=== PATIENT | female | born 1975 | race Caucasian/White ===

== ENCOUNTER 2017-05-22 06:31 | Day surgery (SDC) | payer OTHER ==
[2017-05-22] MEDS ORDERED: Lactated Ringers 1,000 ML IV SCH (07:00)
[2017-05-22] MEDS ORDERED: Lidocaine 1%/Sod Bicarbonate in NS 8.4% 1 ML Syringe IDERM PRN (07:00)
[2017-05-22] MEDS ORDERED: Sodium Chloride 0.9% 10 ML Syringe FLUSH PRN (07:00)
--- NOTE | 2017-05-22 07:24 | PCM.PREANE ---
Preanesthetic Assessment - Procedure Proposed Procedure: EGD - Anesthesia/Transfusion/Family Hx Anesthesia History: Prior Anesthesia Without Reaction (some hypotension after surgery) Family History of Anesthesia Reaction: No Transfusion History: No Prior Transfusion(s) Intubation History: Unknown - Review of Systems General: No Symptoms Pulmonary: No Symptoms, Other (asthma ) Cardiovascular: No Symptoms Gastrointestinal: Other (GERD, PUD ) Neurological: Tingling (lower extremities ) Other: Reports: None (vocal cord horseness baseline ) - Physical Assessment NPO Status Date: 05/21/17 NPO Status Time: 21:00 O2 Sat by Pulse Oximetry: 95 Respiratory Rate: 18 Vital Signs: Last Vital Signs Temp 36.7 C 05/22/17 06:35 Pulse 78 05/22/17 06:35 Resp 18 05/22/17 06:35 BP 125/71 05/22/17 06:35 Pulse Ox 95 05/22/17 06:35 Height: 1.75 m Weight: 162.84 kg ASA Class: 3 Mental Status: Alert & Oriented x3 Airway Class: Mallampati = 1 Dentition: Reports: Normal Dentition ROM/Head Extension: Full Lungs: Clear to Auscultation, Normal Respiratory Effort Cardiovascular: Regular Rate, Regular Rhythm - Allergies Allergies/Adverse Reactions: Allergies Allergy/AdvReac Type Severity Reaction Status Date / Time acetaminophen [From Vicodin] Allergy Cannot Verified 05/22/17 07:18 Remember amoxicillin Allergy Cannot Verified 05/22/17 07:18 Remember codeine Allergy Cannot Verified 05/22/17 07:18 Remember guaifenesin Allergy Cannot Verified 05/22/17 07:18 Remember hydrocodone [From Vicodin] Allergy Cannot Verified 05/22/17 07:18 Remember Penicillins Allergy Cannot Verified 05/22/17 07:18 Remember - Blood Blood Available: No PreAnesthesia Questionnaire HEENT History: Reports: Impaired Vision, Other (See Below) Other HEENT History: hoarseness Cardiovascular History: Reports: None Respiratory History: Reports: Asthma Gastrointestinal History: Reports: GERD, PUD, Other (See Below) Other Gastrointestinal History: splenic cyst, ulcer Genitourinary History: Reports: None 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) Other OB/BYN History: cystic breast disease, ovarian surgery x2 Musculoskeletal History: Reports: Osteoarthritis Neurological History: Reports: Other (See Below) Other Neuro History: epilepsy, neuropathy Psychiatric History: Reports: Depression Endocrine/Metabolic History: Reports: Obesity/BMI 30+ Hematologic History: Reports: None Immunologic History: Reports: None Oncologic (Cancer) History: Reports: None Dermatologic History: Reports: None - Past Surgical History Head Surgeries/Procedures: Reports: None HEENT Surgical History: Reports: None, Tonsillectomy Cardiovascular Surgical History: Reports: None Respiratory Surgical History: Reports: None GI Surgical History: Reports: Appendectomy, EGD Female Surgical History: Reports: Section Endocrine Surgical History: Reports: None Neurological Surgical History: Reports: None Musculoskeletal Surgical History: Reports: None Oncologic Surgical History: Reports: None Dermatological Surgical History: Reports: None - SUBSTANCE USE Smoking Status *Q: Former Smoker Recreational Drug Use History: No - HOME MEDS Home Medications: Home Meds Butalb/Acetaminophen/Caffeine [Okgcrz-Mdbvbfdw-Rzov 50-325-40] 1 tab PO Q4H PRN 05/21/17 [History] Omeprazole [Omeprazole] 20 mg PO DAILY 05/21/17 [History] Propranolol [Inderal LA] 80 mg PO DAILY 05/21/17 [History] rOPINIRole [Requip] 0.25 mg PO BEDTIME 05/21/17 [History] - CURRENT (IN HOUSE) MEDS Current Meds: Current Medications Lactated Ringer's (Ringers, Lactated) 1,000 mls @ 125 mls/hr IV ASDIRECTED DALJIT Stop: 05/22/17 23:00 Last Admin: 05/22/17 06:50 Dose: 125 mls/hr Lidocaine/Sodium Bicarbonate (Buffered Lidocaine 1% In Ns 8.4%) 0.25 ml IDERM ONETIME PRN PRN Reason: Prior to IV Start Stop: 05/22/17 18:00 Last Admin: 05/22/17 06:49 Dose: 0.25 ml Sodium Chloride (Saline Flush) 10 ml FLUSH ASDIRECTED PRN PRN Reason: Keep Vein Open Stop: 05/22/17 18:00
[2017-05-22] MEDS ORDERED: Propofol 200 MG/20 ML SDV ONE (07:30)
[2017-05-22] MEDS ORDERED: Lidocaine 1% 4 ML ONE (07:32)
--- NOTE | 2017-05-22 07:49 | PCM.HP ---
H&P History of Present Illness - General Date of Service: 05/22/17 Admit Problem/Dx: GERD, Peptic Ulcer Disease Source of Information: Patient History Limitations: Reports: No Limitations - History of Present Illness Initial Comments - Free Text/Narative: 41 year old female here today for EGD due to gastric reflux and history of peptic ulcer disease. She has ongoing symptoms of heartburn despite 20 mg omeprazole daily. She has had some weight loss. She denies any melena, no hematochezia. She has had no dysphagia. She has some vocal hoarseness. - Related Data Allergies/Adverse Reactions: Allergies Allergy/AdvReac Type Severity Reaction Status Date / Time acetaminophen [From Vicodin] Allergy Cannot Verified 05/22/17 07:18 Remember amoxicillin Allergy Cannot Verified 05/22/17 07:18 Remember codeine Allergy Cannot Verified 05/22/17 07:18 Remember guaifenesin Allergy Cannot Verified 05/22/17 07:18 Remember hydrocodone [From Vicodin] Allergy Cannot Verified 05/22/17 07:18 Remember Penicillins Allergy Cannot Verified 05/22/17 07:18 Remember Home Medications: Home Meds Butalb/Acetaminophen/Caffeine [Mobsli-Ppakoxur-Zaen 50-325-40] 1 tab PO Q4H PRN 05/21/17 [History] Omeprazole [Omeprazole] 20 mg PO DAILY 05/21/17 [History] Propranolol [Inderal LA] 80 mg PO DAILY 05/21/17 [History] rOPINIRole [Requip] 0.25 mg PO BEDTIME 05/21/17 [History] Past Medical History HEENT History: Reports: Impaired Vision, Other (See Below) Other HEENT History: hoarseness Cardiovascular History: Reports: None Respiratory History: Reports: Asthma Gastrointestinal History: Reports: GERD, PUD, Other (See Below) Other Gastrointestinal History: splenic cyst, ulcer Genitourinary History: Reports: None 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) Other OB/BYN History: cystic breast disease, ovarian surgery x2 Musculoskeletal History: Reports: Osteoarthritis Neurological History: Reports: Other (See Below) Other Neuro History: epilepsy, neuropathy Psychiatric History: Reports: Depression Endocrine/Metabolic History: Reports: Obesity/BMI 30+ Hematologic History: Reports: None Immunologic History: Reports: None Oncologic (Cancer) History: Reports: None Dermatologic History: Reports: None - Past Surgical History Head Surgeries/Procedures: Reports: None HEENT Surgical History: Reports: None, Tonsillectomy Cardiovascular Surgical History: Reports: None Respiratory Surgical History: Reports: None GI Surgical History: Reports: Appendectomy, EGD Female Surgical History: Reports: Section Endocrine Surgical History: Reports: None Neurological Surgical History: Reports: None Musculoskeletal Surgical History: Reports: None Oncologic Surgical History: Reports: None Dermatological Surgical History: Reports: None Social & Family History - Tobacco Use Smoking Status *Q: Former Smoker Used Tobacco, but Quit: Yes Month Tobacco Last Used: 1999 - Caffeine Use Caffeine Use: Reports: Coffee, Soda - Recreational Drug Use Recreational Drug Use: No Drug Use in Last 12 Months: No H&P Review of Systems - Review of Systems: Review Of Systems: See Below General: Reports: No Symptoms Pulmonary: Reports: No Symptoms Cardiovascular: Reports: No Symptoms Gastrointestinal: Denies: Black Stool, Bloody Stool, Difficulty Swallowing, Hematochezia, Melena Exam - Exam Exam: See Below - Vital Signs Vital Signs: Last Vital Signs Temp 36.7 C 05/22/17 06:35 Pulse 78 05/22/17 06:35 Resp 18 05/22/17 07:23 BP 125/71 05/22/17 06:35 Pulse Ox 95 05/22/17 07:23 Weight: 162.84 kg - Exam General: Alert, Oriented Lungs: Clear to Auscultation, Normal Respiratory Effort Cardiovascular: Regular Rate, Regular Rhythm GI/Abdominal Exam: Normal Bowel Sounds, Soft *Q Meaningful Use (ADM) - VTE *Q VTE Criteria *Q: - Stroke *Q Stroke Criteria *Q: - AMI *Q AMI Criteria *Q: - Problem List (1) GERD (gastroesophageal reflux disease) SNOMED Code(s): 286519466 ICD Code: K21.9 - GASTRO-ESOPHAGEAL REFLUX DISEASE WITHOUT ESOPHAGITIS Status: Acute Current Visit: Yes (2) Hoarseness of voice Status: Acute Current Visit: Yes (3) PUD (peptic ulcer disease) SNOMED Code(s): 72557720 ICD Code: K27.9 - PEPTIC ULC, SITE UNSP, UNSP AC OR CHR, W/O HEMOR OR PERF Status: Acute Current Visit: Yes Problem List Initiated/Reviewed/Updated: Yes Orders Last 24hrs: Active Orders 24 hr Category Date Time Status Peripheral IV Care [RC] . DIRECTED Care 05/22/17 07:00 Active Verify Patient Consent Obtain [RC] ASDIRECTED Care 05/22/17 07:00 Active Lactated Ringers [Ringers, Lactated] 1,000 ml Med 05/22/17 07:00 Active IV ASDIRECTED Lidocaine 1%/Sod Bicarbonate [Buffered Lidocaine 1% in Med 05/22/17 07:00 Active NS 8.4%] 0.25 ml IDERM ONETIME PRN Sodium Chloride 0.9% [Saline Flush] Med 05/22/17 07:00 Active 10 ml FLUSH ASDIRECTED PRN Medication Administration Instruction [OM.PC] Routine Oth 05/22/17 07:00 Ordered Peripheral IV Insertion Adult [OM.PC] Routine Oth 05/22/17 07:00 Ordered Medication Orders Lactated Ringer's (Ringers, Lactated) 1,000 mls @ 125 mls/hr IV ASDIRECTED DALJIT Stop: 05/22/17 23:00 Last Admin: 05/22/17 06:50 Dose: 125 mls/hr Lidocaine/Sodium Bicarbonate (Buffered Lidocaine 1% In Ns 8.4%) 0.25 ml IDERM ONETIME PRN PRN Reason: Prior to IV Start Stop: 05/22/17 18:00 Last Admin: 05/22/17 06:49 Dose: 0.25 ml Sodium Chloride (Saline Flush) 10 ml FLUSH ASDIRECTED PRN PRN Reason: Keep Vein Open Stop: 05/22/17 18:00 Assessment/Plan Comment:: Proceed with EGD for above symptoms and concerns despite PPI therapy. Risks/ benefits discussed.
[2017-05-22] MEDS ORDERED: Acetaminophen/Butalbital/Caffeine 325-50-40 MG Tab PO PRN (08:26)
--- NOTE | 2017-05-22 08:26 | PCM48HPAN ---
Post Anesthesia Note - EVALUATION WITHIN 48HRS OF ANESTHETIC Vital Signs in Normal Range: Yes Patient Participated in Evaluation: Yes Respiratory Function Stable: Yes Airway Patent: Yes Cardiovascular Function Stable: Yes Hydration Status Stable: Yes Pain Control Satisfactory: Yes Nausea and Vomiting Control Satisfactory: Yes Mental Status Recovered: Yes Pulse Rate: 76 SaO2: 97 Resp Rate: 18 Temperature: 36.7 C Blood Pressure: 112/71 Pulse Rate: 76
--- NOTE | 2017-05-22 08:26 | PCM.OPNOTE ---
- General Post-Op/Procedure Note Date of Surgery/Procedure: 05/22/17 Operative Procedure(s): Esophagogastroduodenoscopy with biopsy Pre Op Diagnosis: GERD, Peptic Ulcer Disease Post-Op Diagnosis: Esophagitis, Gastric Ulcers Anesthesia Technique: [facility] Primary Surgeon: Dav Hillman Pathology: Biopsies GE junction, Gastric Ulcers EBL in mLs: 5 Complications: None Condition: Good Free Text/Narrative:: After patient gave verbal and written consent, she was placed on bp and pulse ox monitoring. SHe was given IV sedation which she tolerated well. The olympus gastroscope was inserted in the oropharynx and passed down into the second portion of duodenum. THe scope was slowly removed. THe views were excellent. Gastric ulcers of the fundus and antrum were noted and biopsied with cold forceps. There was hemostasis. No active bleeding noted. THere was inflammation and erythema at GE junction. Biopsies were taken at GE junction. THe scope was then removed. Patient left in satisfactory condition.
[2017-05-22] MEDS ORDERED: Propranolol 80 MG Cap.ER PO SCH (09:00)
[2017-05-22] MEDS ORDERED: rOPINIRole 0.25 MG Tab PO SCH (21:00)
== END 2017-05-22 08:51 | disposition home or self-care (01) ==
LOC: JD.SDS 06:31
PROVIDERS: ATTEND Family Medicine
DX: K29.50 Unspecified chronic gastritis without bleeding (principal); K21.0 Gastro-esophageal reflux disease with esophagitis; J45.909 Unspecified asthma, uncomplicated; K27.9 Peptic ulcer, site unspecified, unspecified as acute or chronic, without hemorrhage or perforation; Z88.0 Allergy status to penicillin; Z88.1 Allergy status to other antibiotic agents; Z88.8 Allergy status to other drugs, medicaments and biological substances; E66.9 Obesity, unspecified; Z68.30 Body mass index [BMI] 30.0-30.9, adult; Z87.891 Personal history of nicotine dependence
CPT/HCPCS: 43239; J7120; 00731; J2704

== ENCOUNTER 2019-09-05 09:03 | Emergency (ER) | payer OTHER ==
--- NOTE | 2019-09-05 10:58 | EDM.PDOC ---
ED HPI GENERAL MEDICAL PROBLEM - General Chief Complaint: Lower Extremity Injury/Pain Stated Complaint: PAIN IN BOTH LEGS Time Seen by Provider: 09/05/19 10:20 Source of Information: Reports: Patient, RN Notes Reviewed History Limitations: Reports: No Limitations - History of Present Illness INITIAL COMMENTS - FREE TEXT/NARRATIVE: Patient is a 44-year-old female who presents to the ED for the evaluation of her bilateral leg pain. Patient states that most recently she was on an extended road trip for 2 weeks, and she developed a sharp pain, with swelling in her left leg. She states however when she takes car rides, the swelling in her legs is a very common occurrence for her. She states the pain was what was different. She states that her leg was red and painful to the touch, she did try to ice and stay off it, and took Advil and Tylenol and a sexs-fib-bjirjap basis, nothing seems to really help much during that time. She states the pain is improved, but she still feels like there is a constant "charley horse" In the back of her left calf. Patient states she did start taking diurex for the swelling regularly. Patient also notes is get a history of varicose veins, so was unsure if there could be something regarding the use. Patient denies any shortness of breath, fever/chills, cough or any other sick-like symptoms. Patient's primary care provider is Dr. Oliva. Patient also complains of some mild swelling on her lateral right knee, states that it is worsened when she bends her knee, this is not overly painful, but bothersome to her. Left Leg Pain Score (Numeric/FACES): 5 - Related Data Allergies Allergy/AdvReac Type Severity Reaction Status Date / Time amoxicillin Allergy Cannot Verified 09/05/19 09:32 Remember codeine Allergy Cannot Verified 09/05/19 09:32 Remember guaifenesin Allergy Cannot Verified 09/05/19 09:32 Remember hydrocodone [From Vicodin] Allergy Cannot Verified 09/05/19 09:32 Remember Penicillins Allergy Cannot Verified 09/05/19 09:32 Remember Home Meds: Home Meds Butalb/Acetaminophen/Caffeine [Wybkss-Jcfysnwe-Gsed 50-325-40] 1 tab PO Q4H PRN 05/21/17 [History] Omeprazole 20 mg PO DAILY 05/21/17 [History] Propranolol [Inderal LA] 80 mg PO DAILY 05/21/17 [History] rOPINIRole [Requip] 0.25 mg PO BEDTIME 05/21/17 [History] Sucralfate [Carafate] 1 gm PO BID #60 tablet 05/22/17 [Rx] Past Medical History HEENT History: Reports: Impaired Vision, Other (See Below) Other HEENT History: hoarseness Respiratory History: Reports: Asthma Gastrointestinal History: Reports: GERD, PUD, Other (See Below) Other Gastrointestinal History: splenic cyst, ulcer 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: cystic breast disease, ovarian surgery x2 Musculoskeletal History: Reports: Osteoarthritis Neurological History: Reports: Other (See Below) Other Neuro History: epilepsy, neuropathy Psychiatric History: Reports: Depression Endocrine/Metabolic History: Reports: Obesity/BMI 30+ - Past Surgical History HEENT Surgical History: Reports: Tonsillectomy GI Surgical History: Reports: Appendectomy, EGD Female Surgical History: Reports: Section Social & Family History - Tobacco Use Smoking Status *Q: Never Smoker Second Hand Smoke Exposure: No - Caffeine Use Caffeine Use: Reports: None - Recreational Drug Use Recreational Drug Use: No Review of Systems - Review of Systems Review Of Systems: Comprehensive ROS is negative, except as noted in HPI. ED EXAM, GENERAL - Physical Exam Exam: See Below Exam Limited By: No Limitations General Appearance: Alert, WD/WN, No Apparent Distress Eye Exam: Bilateral Eye: EOMI, Normal Inspection, Periorbital Changes Head: Atraumatic, Normocephalic Neck: Normal Inspection Respiratory/Chest: No Respiratory Distress, Lungs Clear, Normal Breath Sounds, No Accessory Muscle Use, Chest Non-Tender Cardiovascular: Normal Peripheral Pulses, Regular Rate, Rhythm, No Murmur GI/Abdominal: Normal Bowel Sounds, Soft, Non-Tender, No Distention, No Mass Back Exam: Normal Inspection Extremities: Normal Inspection, Normal Capillary Refill, Leg Pain (bilateral leg cramps). No: Increased Warmth, Redness Neurological: Alert, Oriented, Normal Cognition, No Motor/Sensory Deficits Psychiatric: Normal Affect, Normal Mood Skin Exam: Warm, Dry, Intact, Normal Color, No Rash Course - Vital Signs Last Recorded V/S: Last Vital Signs Temp 97.1 F 06/22/20 09:25 Pulse 86 09/05/19 09:25 Resp 18 09/05/19 09:25 BP 152/76 H 09/05/19 09:25 Pulse Ox 99 09/05/19 09:25 - Orders/Labs/Meds Labs: Laboratory Tests 09/05/19 09/05/19 Range/Units 12:40 12:40 Sodium 141 (136-145) mEq/L Potassium 4.3 (3.5-5.1) mEq/L Chloride 106 (98-107) mEq/L Carbon Dioxide 27 (21-32) mEq/L Anion Gap 12.3 (5-15) BUN 13 (7-18) mg/dL Creatinine 0.7 (0.55-1.02) mg/dL Est Cr Clr Drug Dosing 98.69 mL/min Estimated GFR (MDRD) > 60 (>60) mL/min BUN/Creatinine Ratio 18.6 H (14-18) Glucose 95 (74-106) mg/dL Calcium 9.0 (8.5-10.1) mg/dL Magnesium 2.0 (1.8-2.4) mg/dl Total Bilirubin 0.4 (0.2-1.0) mg/dL AST 17 (15-37) U/L ALT 29 (14-59) U/L Alkaline Phosphatase 65 (46-116) U/L Total Protein 7.1 (6.4-8.2) g/dl Albumin 3.8 (3.4-5.0) g/dl Globulin 3.3 gm/dL Albumin/Globulin Ratio 1.2 (1-2) - Re-Assessments/Exams Free Text/Narrative Re-Assessment/Exam: 09/05/19 12:28 Patient presents to the ED for evaluation of her bilateral leg pain. Ultrasound shortly after the patient presented to the ER to rule out blood clot. Due to the busyness in the ER, I did not get to the patient until ultrasound is being finished, ultrasound report itself demonstrates no sign of a DVT within the right or left lower extremities. Due to the patient stating that she took diuretics, it is likely that she could be having muscle cramps from dehydration due to the diuretics. We will get CMP and magnesium levels to check for electrolyte abnormalities, but we will try to expedite the patient's treatment plan once we get the labs back. 06/22/20 13:53 Labs are back and are unremarkable. I will discharge home with general recommendations at this time. Instead of Diurex, I will suggest that she use some sort of compression sock or MICHAEL wraps on long travel. Departure - Departure Time of Disposition: 14:08 Disposition: Home, Self-Care 01 Condition: Good Clinical Impression: Pain of left lower extremity, Swelling of lower limb - Discharge Information *PRESCRIPTION DRUG MONITORING PROGRAM REVIEWED*: No *COPY OF PRESCRIPTION DRUG MONITORING REPORT IN PATIENT VIRGIL: No Referrals: Dav Hillman MD [Primary Care Provider] - Forms: ED Department Discharge Additional Instructions: You were evaluated in the ER today regarding your left lower leg pain. You did have an ultrasound done of both legs to rule out blood clots, and there were no blood clots identified at today's visit. You also had some laboratory evaluation to check for metabolic abnormalities and these were also within normal limits. It is likely that while taking diurex, you are experiencing some muscle discomfort/cramping, as the diuretics can still potassium out of the muscles, causing some cramps and pain. Recommend on long car trips instead of trying diuretics, that you try to use Michael wraps to both legs, and or use MONIAK hose/compression socks to provide compression to provide relief from swelling, is also further recommended that you get out of your car more frequently for more frequent rest stops, and walk around a good 10 to 15 minutes before getting back into the car to travel again. While you were in the car, you may do calf pumps as well to help relieve some of the swelling, and try to elevate your legs as much as possible while not in the car. At this time there is no other urgent or emergent consideration regarding the pain in your legs. I would recommend increasing your oral hydration with fluids other than soda pop at this time. You may want to try regular water, Gatorade/Powerade to see if this also does not help some of your symptoms. You may take 600 mg of ibuprofen every 6 hours as needed for further pain relief, do not exceed 3200 mg ibuprofen in a 24-hour time span. Please return to the ER at any time if your symptoms should change or worsen. Sepsis Event Note (ED) - Evaluation Sepsis Screening Result: No Definite Risk - Focused Exam Vital Signs: Vital Signs Temp Pulse Resp BP Pulse Ox 09/05/19 09:25 97.1 F 86 18 152/76 H 99
--- NOTE | 2019-09-05 11:48 | US ---
Bilateral lower extremity deep venous ultrasound: Duplex and color Doppler evaluation was obtained of the right and left common femoral, proximal greater saphenous, superficial femoral, popliteal, posterior tibial and peroneal veins. Comparison: No prior venous imaging is available. Findings: Normal phasic flow, augmentation and compression is seen. Impression: 1. No evidence of deep venous thrombosis within the right or left lower extremities. Diagnostic code #1 This report was dictated in MDT
== END 2019-09-05 14:31 | disposition home or self-care (01) ==
LOC: JD.ED 09:03
DX: M79.605 Pain in left leg (principal); R22.42 Localized swelling, mass and lump, left lower limb; J45.909 Unspecified asthma, uncomplicated; G62.9 Polyneuropathy, unspecified; K21.9 Gastro-esophageal reflux disease without esophagitis; E66.9 Obesity, unspecified; Z68.43 Body mass index [BMI] 50.0-59.9, adult; Z88.0 Allergy status to penicillin; Z88.5 Allergy status to narcotic agent; Z88.1 Allergy status to other antibiotic agents
CPT/HCPCS: 36415; 80053; 83735; 93970; 93970-26; 99282; 99284-25

== ENCOUNTER 2020-07-18 18:52 | Emergency (ER) | payer OTHER ==
[2020-07-18] MEDS ORDERED: diphenhydrAMINE 50 MG/ML SDV IVPUSH ONE (19:08)
[2020-07-18] MEDS ORDERED: Sodium Chloride 0.9% 10 ML Syringe FLUSH PRN (19:08)
[2020-07-18] MEDS ORDERED: methylPREDNISolone Sodium Succinate 125 MG/2 ML SDV IVPUSH ONE (19:08)
[2020-07-18] MEDS ORDERED: Sodium Chloride 0.9% 1,000 ML IV ONE (19:08)
[2020-07-18] MEDS ORDERED: Famotidine 20 MG/2 ML SDV IVPUSH ONE (19:08)
--- NOTE | 2020-07-18 19:13 | EDM.PDOC ---
ED HPI GENERAL MEDICAL PROBLEM - General Chief Complaint: Allergic Reaction Stated Complaint: poss allergic reaction Time Seen by Provider: 07/18/20 19:01 Source of Information: Reports: Patient, RN Notes Reviewed History Limitations: Reports: No Limitations - History of Present Illness INITIAL COMMENTS - FREE TEXT/NARRATIVE: Patient is a 45-year-old female who presents to the ER for possible allergic reaction. The patient notes that she was eating cantaloupe just prior to coming to the ER, notes that she has had cantaloupe in the past, but she did eat "a ton" of it and is not sure if she overdid this. Notes that she had an allergy to watermelon when she was a child but has not had an issue since then. She developed mouth tingling, hand tingling, facial puffiness, and airway tightness, which prompted her to come to the ER. She did not take any medications prior to coming to the ER for the possible allergic reaction. Note she has a history of asthma that seems to be well controlled otherwise denies any past medical history. Primary care provider is Cristiane Ballesteros. Patient's not had any fevers or chills, cough or shortness of breath, she has a little bit of nausea but no vomiting or diarrhea. - Related Data Allergies Allergy/AdvReac Type Severity Reaction Status Date / Time amoxicillin Allergy Cannot Verified 09/05/19 09:32 Remember cantaloupe Allergy Itching Verified 07/18/20 19:45 codeine Allergy Cannot Verified 09/05/19 09:32 Remember doxycycline Allergy Cannot Verified 07/18/20 19:45 Remember guaifenesin Allergy Cannot Verified 09/05/19 09:32 Remember hydrocodone [From Vicodin] Allergy Cannot Verified 09/05/19 09:32 Remember Penicillins Allergy Cannot Verified 09/05/19 09:32 Remember Home Meds: Home Meds Omeprazole 20 mg PO DAILY 05/21/17 [History] Ascorbic Acid [Vitamin C] 1,000 mg PO DAILY 07/18/20 [History] Ascorbic Acid [Vitamin C] 1,000 mg PO DAILY 07/18/20 [History] Aspirin [Aspirin EC] 81 mg PO DAILY 07/18/20 [History] Cholecalciferol (Vitamin D3) [Vitamin D3] 5,000 unit PO DAILY 07/18/20 [History] Cyanocobalamin (Vitamin B12) [Vitamin B12] 1,000 mcg PO DAILY 07/18/20 [History] Garlic 2,000 mg PO DAILY 07/18/20 [History] Ginkgo Biloba 60 mg PO DAILY 07/18/20 [History] Ginseng 100 mg PO DAILY 07/18/20 [History] Krill Oil 500 mg PO DAILY 07/18/20 [History] Magnesium 250 mg PO DAILY 07/18/20 [History] Potassium Gluconate [Potassium] 99 mg PO DAILY 07/18/20 [History] Prasterone (DHEA) [Dhea] 100 mg PO DAILY 07/18/20 [History] Quercetin Dihydrate 500 gm MC BID 07/18/20 [History] Rizatriptan Benzoate [Rizatriptan] 10 mg PO ASDIRECTED PRN 07/18/20 [History] Vitamin D3/Vitamin K2 (Mk4) [K2 Plus D3 Tablet] 1 each PO DAILY 07/18/20 [History] Vitamin E 1,000 unit PO DAILY 07/18/20 [History] Zinc 25 mg PO BID 07/18/20 [History] Past Medical History HEENT History: Reports: Impaired Vision, Other (See Below) Other HEENT History: hoarseness Respiratory History: Reports: Asthma Gastrointestinal History: Reports: GERD, PUD, Other (See Below) Other Gastrointestinal History: splenic cyst, ulcer CORRECTIONAL LIEUTENANT History: Reports: Other (See Below) Other CORRECTIONAL LIEUTENANT History: cystic breast disease, ovarian surgery x2 Musculoskeletal History: Reports: Osteoarthritis Neurological History: Reports: Other (See Below) Other Neuro History: epilepsy, neuropathy Psychiatric History: Reports: Depression Endocrine/Metabolic History: Reports: Obesity/BMI 30+ - Past Surgical History HEENT Surgical History: Reports: Tonsillectomy GI Surgical History: Reports: Appendectomy, EGD Female Surgical History: Reports: Section Social & Family History - Tobacco Use Tobacco Use Status *Q: Former Tobacco User Used Tobacco, but Quit: Yes Month/Year Tobacco Last Used: 03/1999 - Caffeine Use Caffeine Use: Reports: Coffee - Recreational Drug Use Recreational Drug Use: Yes Drug Use in Last 12 Months: No Recreational 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 ED EXAM GENERAL NO PERIP PULSE - Physical Exam Exam: See Below Exam Limited By: No Limitations General Appearance: Alert, WD/WN, No Apparent Distress Eye Exam: Left Eye: Periorbital Changes (slight upper eyelid swelling to L eye), Bilateral Eye: EOMI, Normal Inspection, PERRL Ears: Normal External Exam Nose: Normal Inspection Throat/Mouth: Normal Inspection, Normal Lips, Normal Teeth, Normal Gums, Normal Oropharynx, Normal Voice, No Airway Compromise Head: Atraumatic, Normocephalic Neck: Normal Inspection, Supple, Non-Tender, Full Range of Motion Respiratory/Chest: No Respiratory Distress, Lungs Clear, Normal Breath Sounds, No Accessory Muscle Use, Chest Non-Tender Cardiovascular: Normal Peripheral Pulses, Regular Rate, Rhythm, No Edema GI/Abdominal: Normal Bowel Sounds, Soft, Non-Tender, No Distention, No Mass Extremities: Normal Inspection, Normal Capillary Refill Neurological: Alert, Oriented, Normal Cognition, No Motor/Sensory Deficits Psychiatric: Normal Affect, Normal Mood Skin Exam: Warm, Dry, Intact, Normal Color, No Rash Course - Vital Signs Last Recorded V/S: Last Vital Signs Temp 97.6 F 07/18/20 19:01 Pulse 97 07/18/20 19:01 Resp 14 07/18/20 19:01 BP 127/80 07/18/20 19:01 Pulse Ox 97 07/18/20 19:01 - Orders/Labs/Meds Orders: Active Orders 24 hr Category Date Time Status Peripheral IV Care [RC] . DIRECTED Care 07/18/20 19:08 Ordered Sodium Chloride 0.9% [Normal Saline] 1,000 ml Med 07/18/20 19:08 Active IV ONETIME Sodium Chloride 0.9% [Saline Flush] Med 07/18/20 19:08 Active 10 ml FLUSH ASDIRECTED PRN Peripheral IV Insertion Adult [OM.PC] Stat Oth 07/18/20 19:08 Ordered Medication Orders Sodium Chloride (Normal Saline) 1,000 mls @ 500 mls/hr IV ONETIME ONE Stop: 07/18/20 21:07 Last Admin: 07/18/20 19:18 Dose: 500 mls/hr Documented by: KHAI Sodium Chloride (Sodium Chloride 0.9% 10 Ml Syringe) 10 ml FLUSH ASDIRECTED PRN PRN Reason: Keep Vein Open Last Admin: 07/18/20 19:12 Dose: 10 ml Documented by: KHAI Meds: Medications Generic Name Dose Route Start Last Admin Trade Name Freq PRN Reason Stop Dose Admin Sodium Chloride 1,000 mls @ 500 mls/hr 07/18/20 19:08 07/18/20 19:18 Normal Saline IV 07/18/20 21:07 500 mls/hr ONETIME ONE Administration Sodium Chloride 10 ml 07/18/20 19:08 07/18/20 19:12 Sodium Chloride 0.9% 10 Ml Syringe FLUSH 10 ml ASDIRECTED PRN Administration Keep Vein Open Discontinued Medications Generic Name Dose Route Start Last Admin Trade Name Freq PRN Reason Stop Dose Admin Diphenhydramine HCl 50 mg 07/18/20 19:08 07/18/20 19:20 Diphenhydramine 50 Mg/Ml Sdv IVPUSH 07/18/20 19:09 50 mg ONETIME ONE Administration Famotidine 20 mg 07/18/20 19:08 07/18/20 19:18 Famotidine 20 Mg/2 Ml Sdv IVPUSH 07/18/20 19:09 20 mg ONETIME ONE Administration Methylprednisolone Sodium Succinate 125 mg 07/18/20 19:08 07/18/20 19:19 Methylprednisolone Sodium Succinate 125 Mg/2 Ml Sdv IVPUSH 07/18/20 19:09 125 mg ONETIME ONE Administration - Re-Assessments/Exams Free Text/Narrative Re-Assessment/Exam: 07/18/20 19:13 Patient presents to the ER for her possible allergic reaction, we will go ahead and give her some IV fluids, Benadryl, Pepcid, Solu-Medrol for suspected allergic reaction. Will reassess after the patient has had time to receive the medications ordered. 07/18/20 20:06 Patient states she is feeling better with the medications given, she is comfortable going home at this time we will go ahead and discharge the patient with general recommendations. Departure - Departure Time of Disposition: 20:07 Disposition: Home, Self-Care 01 Condition: Good Clinical Impression: Allergic reaction Qualifiers: Encounter type: initial encounter Qualified Code(s): T78.40XA - Allergy, unspecified, initial encounter - Discharge Information *PRESCRIPTION DRUG MONITORING PROGRAM REVIEWED*: No *COPY OF PRESCRIPTION DRUG MONITORING REPORT IN PATIENT VIRGIL: No Instructions: Allergies, Adult, [id number] Referrals: Cristiane Ballesteros PA-C [Primary Care Provider] - Forms: ED Department Discharge Additional Instructions: You were seen in this ER for a possible allergic reaction. You were given some IV fluids, and medications for management of this, this seemed to relieve most your symptoms. Please continue to use Benadryl, 25 mg every 4-6 hours as needed for ongoing symptoms, if this makes you too drowsy, you may use [id number] Pepcid (famotidine) as directed on the back of the box for dosing purposes for itching purposes throughout the day. It was thought that the cantaloupe could have caused a hypersensitivity/allergic reaction which caused your face to swell, and provide you with the symptoms of brought you to the ER today, please try to refrain from eating cantaloupe in the near future until you can be seen by possible business management intern for testing if indicated. Continue to increase your oral high fluid hydration, and please do not hesitate to return to the ER at any time if symptoms change or worsen. Sepsis Event Note (ED) - Evaluation Sepsis Screening Result: No Definite Risk - Focused Exam Vital Signs: Vital Signs Temp Pulse Resp BP Pulse Ox 07/18/20 19:01 97.6 F 97 14 127/80 97 - My Orders Last 24 Hours: My Active Orders 07/18/20 19:08 Peripheral IV Care [RC] . DIRECTED Sodium Chloride 0.9% [Normal Saline] 1,000 ml IV ONETIME Sodium Chloride 0.9% [Saline Flush] 10 ml FLUSH ASDIRECTED PRN Peripheral IV Insertion Adult [OM.PC] Stat - Assessment/Plan Last 24 Hours: My Active Orders 07/18/20 19:08 Peripheral IV Care [RC] . DIRECTED Sodium Chloride 0.9% [Normal Saline] 1,000 ml IV ONETIME Sodium Chloride 0.9% [Saline Flush] 10 ml FLUSH ASDIRECTED PRN Peripheral IV Insertion Adult [OM.PC] Stat
== END 2020-07-18 20:21 | disposition home or self-care (01) ==
LOC: JD.ED 18:52
DX: T78.1XXA Other adverse food reactions, not elsewhere classified, initial encounter (principal); R22.0 Localized swelling, mass and lump, head; K21.9 Gastro-esophageal reflux disease without esophagitis; E66.9 Obesity, unspecified; Z88.0 Allergy status to penicillin; Z88.1 Allergy status to other antibiotic agents; Z88.5 Allergy status to narcotic agent; Z88.8 Allergy status to other drugs, medicaments and biological substances; Z79.82 Long term (current) use of aspirin; Z79.899 Other long term (current) drug therapy; Z87.891 Personal history of nicotine dependence; Z68.43 Body mass index [BMI] 50.0-59.9, adult
CPT/HCPCS: 96374; 96375; 99283; J1200; J2930; J3490; J7030

== ENCOUNTER 2021-08-04 14:54 | Emergency (ER) | payer BC, OTHER ==
[2021-08-04] MEDS ORDERED: Ketorolac 15 MG/ML SDV IVPUSH ONE (15:23)
[2021-08-04] MEDS ORDERED: Sodium Chloride 0.9% 10 ML Syringe FLUSH ONE (16:07)
[2021-08-04] MEDS ORDERED: Iopamidol 755 Mg/ML 100 ML Bottle IVPUSH ONE (16:07)
[2021-08-04] MEDS ORDERED: Sodium Chloride 0.9% 100 ML IV SCH (16:15)
== END 2021-08-04 17:20 | disposition home or self-care (01) ==
LOC: JD.ED 14:54
DX: M54.2 Cervicalgia (principal); R20.2 Paresthesia of skin; K21.9 Gastro-esophageal reflux disease without esophagitis; E66.9 Obesity, unspecified; Z68.43 Body mass index [BMI] 50.0-59.9, adult; Z86.16 Personal history of COVID-19; Z90.49 Acquired absence of other specified parts of digestive tract; Z79.899 Other long term (current) drug therapy; Z79.82 Long term (current) use of aspirin; Z88.0 Allergy status to penicillin; Z88.5 Allergy status to narcotic agent; Z88.1 Allergy status to other antibiotic agents; Z91.018 Allergy to other foods; Z88.8 Allergy status to other drugs, medicaments and biological substances
CPT/HCPCS: 36415; 70496; 70498; 80053; 84484; 85025; 85610; 93005; 96374; 99284; J1885; J3490; Q9967; 93010

== ENCOUNTER 2022-12-19 10:09 | Emergency (ER) | payer BC ==
[2022-12-19] MEDS ORDERED: Lidocaine 1% 10 ML MDV INJECT ONE (10:30)
== END 2022-12-19 11:37 | disposition home or self-care (01) ==
LOC: JD.ED 10:09
DX: S61.217A Laceration without foreign body of left little finger without damage to nail, initial encounter (principal); E66.9 Obesity, unspecified; Z68.43 Body mass index [BMI] 50.0-59.9, adult; K21.9 Gastro-esophageal reflux disease without esophagitis; J45.909 Unspecified asthma, uncomplicated; Z88.0 Allergy status to penicillin; Z88.5 Allergy status to narcotic agent; Z88.8 Allergy status to other drugs, medicaments and biological substances; Z88.1 Allergy status to other antibiotic agents; Z79.82 Long term (current) use of aspirin; W26.0XXA Contact with knife, initial encounter
CPT/HCPCS: 12001; 99282; J3490